=== PATIENT | male | born 1950 | race Caucasian/White ===

== ENCOUNTER 2017-07-06 02:07 | Inpatient (IN) | payer MEDICARE, BC ==
--- NOTE | 2017-06-07 09:43 | RADIOLOGY IMAGING REPORT ---
FACILITY: [facility] PATIENT NAME: Estiven Cornejo : 1950 MR: [id number] V: [id number] EXAM DATE: [id number] ORDERING PHYSICIAN: DOUG PALOMINO TECHNOLOGIST: Location: [facility] [place] Patient: Estiven Cornejo : 1950 Visit/Account:[id number] Date of Sevice: 06/07/2017 Exam type: CHEST PA AND LAT History: Preop, no chest complaints Comparison: November 25, 2016. Findings: The lungs are free of acute effusions, infiltrates or edema. The cardiac silhouette is normal in siz e. There is moderate ectasia the thoracic aorta similar to the prior examination. There is a small hiatal hernia. Incompletely imaged are postsurgical changes of the upper lumbar spine. There is a m ild compression fracture in the mid to upper thoracic spine appears unchanged IMPRESSION: 1. No acute cardiopulmonary process is seen Small hiatal hernia Report Dictated By: Kaitlyn Hilario MD at 06/07/2017 9:18 AM Report E-Signed By: Kaitlyn Hilario MD at 06/07/2017 9:20 AM WSN:[email or web address]
--- NOTE | 2017-06-07 11:40 | EKG ---
FACILITY: [facility] [place] PATIENT NAME: ANAMARIA ZENG : [id number] MR: [id number] V: [id number] EXAM DATE: ORDERING PHYSICIAN: DOUG PALOMINO TECHNOLOGIST: TRACY Test Reason : PREOP-KNEE Blood Pressure : / mmHG Vent. Rate : 075 BPM Atrial Rate : 075 BPM P-R Int : 166 ms QRS Dur : 094 ms QT Int : 364 ms P-R-T Axes : 074 042 059 degrees QTc Int : 406 ms Normal sinus rhythm with sinus arrhythmia Normal ECG When compared with ECG of 25-NOV-2016 09:19, No significant change was found Confirmed by SEBAS MARTIN ([id number]) on 06/07/2017 6:42:40 PM Referred By: CANDELARIO Confirmed By:SEBAS MARTIN
--- NOTE | 2017-07-03 04:05 | HISTORY AND PHYSICAL ---
DATE OF ADMISSION: July 06, 2017 IDENTIFICATION/CHIEF COMPLAINT Estiven is a 67-year-old gentleman with the chief complaint of right knee pain. HISTORY OF PRESENT ILLNESS Patient has a longstanding history of knee arthritis, progressively painful and debilitating, refractory to conservative care. Surgery is indicated to relieve symptoms after failure of nonoperative measures. PAST MEDICAL HISTORY 1. Hypertension, well controlled on medication. 2. Borderline sleep apnea. 3. Remote history of pneumonia. CURRENT MEDICATIONS 1. Mobic 50 mg a day. 2. Tramadol 50 mg t.i.d. 3. Levothyroxine 88 mcg q.day. 4. Propanolol 40 mg p.o. q.day. 5. Atorvastatin 40 mg p.o. q.day. 6. Amitriptyline 25 mg b.i.d. 7. Gabapentin 300 mg t.i.d. 8. Vitamins. ALLERGIES No known drug allergies. PAST SURGICAL HISTORY 1. Prior knee arthroscopy. 2. Lumbar fusion. 3. Hernia repair times two. 4. Treatment of collapsed lung. FAMILY HISTORY Noncontributory. SOCIAL HISTORY Notable for drinking two to three glasses of wine per week. Denies abuse. He previously smoked, but quit 20 years ago. REVIEW OF SYSTEMS Otherwise noncontributory. PHYSICAL EXAMINATION GENERAL: This is a well-developed, well-nourished male who appears his stated age. HEAD: Normocephalic and atraumatic. NECK: Supple. LUNGS: Clear. HEART: Regular. ABDOMEN: Soft. ORTHOPEDIC EXAM: Knee has an effusion present. Crepitus is noted. Extensor function is intact. Gross stability is good. He is stiff at the end range. IMAGING Radiographs demonstrate advanced degenerative changes. ASSESSMENT Right knee end-stage degenerative joint disease, progressively painful and debilitating, refractory to conservative care. PLAN Per patient request we are going to proceed with total knee arthroplasty. The nature of the procedure, risks, benefits and nonoperative alternatives were reviewed. Risks include, but are not limited to , major medical or anesthetic complications, infection, neurovascular injury, blood transfusion, stiffness, scarring, fracture, tendon rupture, instability, implant loosening, migration or failure, persistent or recurrent pain, need for additional surgery and other unforeseen. He understands and wishes to proceed. A signed permit was placed on the chart. No guarantees given or implied. [facility]
[2017-07-05 15:36] LABS: INR 0.97
[~2017-07-06] VITALS: Ht 182.9 cm; Wt 80.7 kg
[2017-07-06] VITALS (16 sets, daily range): BP systolic 107–143; BP diastolic 80–111
[~2017-07-06 02:07] MED LIST: ACE3 PO; ACET500T68 PO; AMIT-106 PO; AMOX1TAB9 PO; ASCO-182 PO; ATOR20TA65 PO; ATOR40TA24 PO; BENZ100C4 PO; CELEBREX; CHLO25TA19; CHOL200022 PO; CHOL400C10 PO; COLC0.6C3 PO; CRESTOR; DIAZ-305 PO; DIAZ-311 PO; DIPH-740 PO; DOXY-1 PO; EZET10TA41 PO; GAB300 PO; GABA-503 PO; GABA-549 PO; HYDR-4308 PO; HYDR2TAB74 PO; KET10 PO; LEVO-85 PO; LEVO75CA4; LEVO88TA42 PO; LOR5/325 PO; MELO-207 PO; METH4TAB66 PO; MULT-27 PO; OMEG500C7 PO; OXYC20TA99 PO; PER PO; PROP40TA45 PO; PSYL0.5235 PO; SIMV-44 PO; SIMV-54; SYNTHROID; TRA50 PO; TRAM-420 PO; TRAM-627 PO; ZOLP12.546 PO
[2017-07-06] MEDS ORDERED: MIDAZOLAM 2 MG/2 ML VIAL IVP PRN (06:15)
[2017-07-06] MEDS ORDERED: DEXTROSE 5% IV ONE (06:15)
[2017-07-06] MEDS ORDERED: FAMOTIDINE 20 MG TAB PO ONE (06:15)
[2017-07-06] MEDS ORDERED: ceFAZolin(*) 2GM/D5W 50ML 50 ML IVPB ONE (06:15)
[2017-07-06] MEDS ORDERED: LIDOCAINE/SOD BICARB 8.4% SYR ID ONE (06:15)
[2017-07-06] MEDS ORDERED: NORMOSOL R SOLN(*) 1000 ML BAG 1,000 ML IV PRN ×2 (06:15→09:50)
[2017-07-06] MEDS ORDERED: TRANEXAMIC AC IV ONE (06:15)
[2017-07-06] MEDS ORDERED: TRANEXAMIC AC 1000 MG/10ML SDV 1,000 MG in DEXTROSE 5% 50 ML BAG 50 ML IV ONE (06:15)
[2017-07-06] MEDS ORDERED: cloNIDine EPIDUR INJ 100MCG/ML 40 MCG, ROPIVACAINE 0.5% 20 ML VIAL 25 ML, EPINEPHrine H... INJ ONE (06:15)
[2017-07-06] MEDS ORDERED: LIDOCAINE MPF 1% 5 ML VIAL ONE (06:39)
[2017-07-06] MEDS ORDERED: DEXAMETHASONE SOD 4 MG/ML VIAL ONE (06:39)
[2017-07-06] MEDS ORDERED: PROPOFOL EMUL(*) 10MG/ML 20 ML 20 ML ONE (06:39)
[2017-07-06] MEDS ORDERED: ONDANSETRON 4 MG/2 ML VIAL ONE (06:39)
[2017-07-06] MEDS ORDERED: fentaNYL CITR 100 MCG/2 ML AMP ONE ×2 (06:40→09:33)
[2017-07-06] MEDS ORDERED: LIDO/EPI 2% MDV 1:100,000 20ML INFIL ONE (06:44)
[2017-07-06] MEDS ORDERED: ROPIVACAINE 0.5% 20 ML VIAL ONE (06:44)
[2017-07-06] MEDS ORDERED: ACETAMINOPHEN(*)1000 MG/100 ML 100 ML IVPB ONE (07:01)
[2017-07-06] MEDS ORDERED: NS 0.9% 20 ML SDV 20 ML ONE (07:02)
[2017-07-06] MEDS ORDERED: HYDROmorphone HCL 2 MG/ML SDV ONE (07:03)
--- NOTE | 2017-07-06 09:48 | RADIOLOGY IMAGING REPORT ---
FACILITY: [facility] PATIENT NAME: Estiven Cornejo : 1950 MR: [id number] V: [id number] EXAM DATE: ORDERING PHYSICIAN: DOUG PALOMINO TECHNOLOGIST: Location: [facility] Patient: Estiven Cornejo : 1950 Visit/Account:[id number] Date of Sevice: 07/06/2017 Right knee, two views. HISTORY: Right total knee arthroplasty. COMPARISON: None currently available. The articular surfaces of the distal femur, proximal tibia, and patella have been resected and replac ed with prosthetic components. The components have been secured with cement. Alignment is unremarkabl e. Air and fluid are present within the joint. Air collections and skin clips are present in the an terior soft tissues. IMPRESSION: Unremarkable knee replacement. Report Dictated By: Martin Manzo MD at 07/06/2017 9:42 AM Report E-Signed By: Martin Manzo MD at 07/06/2017 9:44 AM WSN:[email or web address]
[2017-07-06] MEDS ORDERED: ZOLPIDEM TARTRATE 5 MG TAB PO PRN (09:50)
[2017-07-06] MEDS ORDERED: BISACODYL 10 MG SUPP PR PRN (09:50)
[2017-07-06] MEDS ORDERED: PROMETHAZINE 25 MG/ML 1 ML AMP IVP PRN (09:50)
[2017-07-06] MEDS ORDERED: diphenhydrAMINE 25 MG CAP PO PRN (09:50)
[2017-07-06] MEDS ORDERED: MAGNESIUM HYDROXIDE* 30ML UDCP PO PRN (09:50)
[2017-07-06] MEDS ORDERED: FLUSH 10 ML SYR IVP PRN (09:50)
[2017-07-06] MEDS ORDERED: diphenhydrAMINE 50 MG/ML VIAL IVP PRN (09:50)
[2017-07-06] MEDS ORDERED: ACETAMINOPHEN 325 MG TAB PO PRN (09:50)
[2017-07-06] MEDS: APAP/HYDROCODONE 325/7.5 TAB PO PRN ×2 (11:16→15:36)
--- NOTE | 2017-07-06 11:25 | Hospitalist Progress Note ---
Subjective Progress Notes Subjective The patient is a 67 year old male s/p right TKA with Dr. Irene earlier today. He is doing well postoperatively. Review of the anesthesia record shows and estimated blood loss of 50cc and a low BP during the procedure of 90/50. The patient's PMH is significant for hypothyroidism, dyslipidemia, seizure disorder , insomnia, restless leg syndrome, hx of spontaneous pneumothorax, and hx of pneumonia X 2. PSH is significant for bilateral hernia repair, laminectomy, back surgery and colonoscopy. The patient had acute occurrence of gout in his R arm several days after both back surgeries. He responded well to colchicine. He tends to get constipated on pain medications. Physical Exam Vital Signs Date Time Temp Pulse Resp B/P (MAP) Pulse Ox O2 Delivery O2 Flow Rate FiO2 07/06/17 11:10 98.2 76 16 131/91 (104) 98 Nasal Cannula 0.5 Intake and Output 07/07/17 07:00 Intake Total 1900 ml Balance 1900 ml Intake Oral 100 ml IV Total 1800 ml General Appearance: Alert, Awake, No Acute Distress, Afebrile Neuro: No Gross deficits Eyes: PERRLA Cardiovascular: Regular Rate and Rhythm Respiratory: Clear to Auscultation GI: Soft and Non-Tender Extremities: Warm, Perfused Integumentary: Other (R knee wound bandaged.) Psych: Appropriate Mood & Affect Assessment and Plan Problems: (1) S/P total knee arthroplasty Status: Acute Assessment & Plan: Doing well postoperatively. See Dr. Irene's notes for complete details. The patient will be on ASA 325mg daily for DVT prophylaxis. (2) Hypothyroidism Status: Chronic Assessment & Plan: Continue levothyroxine 88mcg daily. (3) Hyperlipidemia Status: Chronic Assessment & Plan: Continue Zetia 10md daily and atorvastatin 40mg daily. (4) RLS (restless legs syndrome) Status: Chronic Assessment & Plan: Continue amitriptyline 50mg at HS. (5) History of acute gouty arthritis Status: Resolved Assessment & Plan: The patient developed acute gout in his right arm several days after both of his back surgeries. He responded well to colchicine. His was given an RX to have prn if he develops symptoms once discharged. Time Spent on Plan of Care: < 30 min Problem Qualifiers (1) S/P total knee arthroplasty: Laterality: right Qualified Codes: Z96.651 - Presence of right artificial knee joint FLORES,BULMARO A MD Jul 06, 2017 11:25
[2017-07-06] MEDS ORDERED: COLC0.6C3 PO (11:30)
--- NOTE | 2017-07-06 11:39 | LEVENE TKA ---
EVENT DATE: July 06, 2017 SURGEON: Bipin Irene MD ANESTHESIOLOGIST: Randall Hansen MD ANESTHESIA: General plus adductor canal block. SOLID STATE TESTER: Estiven Marie PA-C PREOPERATIVE DIAGNOSIS Right knee degenerative joint disease. POSTOPERATIVE DIAGNOSIS Right knee degenerative joint disease. PROCEDURE PERFORMED Right total knee arthroplasty. ESTIMATED BLOOD LOSS Minimal. DRAINS None. SPECIMENS None. COMPLICATIONS No apparent. TOURNIQUET TIME 36 minutes. IMPLANTS USED [employer] Triathlon knee system, a 5 right PS femur, a 6 standard tibial baseplate , 36 mm universal symmetric all polyethylene patella button and 11 mm PS tibial tray liner. Polyethylene is X3. INDICATIONS The patient is a 67-year-old gentleman with progressive and intractable pain related to end-state knee arthritis refractory to conservative care. Surgery is indicated to relieve symptoms after failure of nonoperative measures. DESCRIPTION OF PROCEDURE The patient was taken to the operating room and placed supine on the operating table. Adductor canal block was placed by the anesthesiologist. General anesthesia was induced. Antibiotics and TXA were administered IV. The right lower extremity was prepped and draped in the usual sterile fashion for knee arthroplasty. The limb was exsanguinated with an Esmarch bandage. The tourniquet was inflated to 250 mmHg. A midline longitudinal incision was made, carried down through the skin and subcutaneous tissue to the extensor mechanism. A full-thickness flap was developed far enough medially to allow medial parapatellar arthrotomy to be performed. The patella was everted. The knee was brought into a flexed position. The fat pad, anterior horns of the menisci and the cruciate ligaments were debrided. Subperiosteal capsular release was performed 1 cm around the upper plateau to balance the knee. A step drill was used to enter the distal femur. A 10-inch long alignment guide was used to engage the isthmus. Cut set for 5 degrees valgus relative to the anatomic axis. A 10 mm resection block was applied, pinned. Cut was made with an oscillating saw. AP sizing guide was applied to the distal femur and positioned for 3 degrees of external rotation relative to the posterior condyles. There is no lateral hypoplasia in spite of the valgus deformity. The four-in-one cutting block size 5 is selected to minimize risk of notching. Four-in-one cutting block was applied. Anterior, posterior, posterior chamfer and anterior chamfer cuts were made respectively. A PS block was applied, centered mediolateral, bone was removed for the box. The trial femur had nice [id number]-[id number] fit. Attention was turned to tibial preparation. The extramedullary guide was applied, positioned for varus, valgus, posterior slope and rotation. This was set to resect 2 mm from the relatively deficient lateral tibial plateau. In spite of the wear on this side, this side was still a bit higher from a bone standpoint. It was dropped down a couple more millimeters to ensure an adequate cut. Block was pinned. Extramedullary check was made. Cut was made with an oscillating saw. The gaps were balanced and symmetric with resection of the popliteus off the femur, a little bit of subperiosteal release of the IT band of Gerdy's, and a posterior capsular release with a Zuniga. The patella was everted, taken from a starting thickness of 25 to a residual of 15 with patellar clamp and oscillating saw. The 36 provided optimal bony coverage without soft tissue overhang. This tracks well with the no-touch technique, no lateral release required. A few bands in the lateral gutter are released. Final tibial preparation consisted of ensuring appropriate rotational and translational position of the component. The box was reamed, the fin was punched. Surfaces were copiously lavaged. Pain cocktail was infiltrated throughout the knee. A mix of polymethylmethacrylate was made and the components were cemented in a single stage. When the cement was fully polymerized, tourniquet was deflated, hemostasis assured. The wound was copiously lavaged. The 11 PS tibial tray liner fills up the gap ideally, allowing the knee to drop to full extension without hyperextension, providing optimal soft tissue tension and balance. The base plate was lavaged and dried, and the liner was locked into the base plate. Joint was reduced. Arthrotomy was closed in flexion with #2 Ethibond, subcu with 3-0 Vicryl, skin with surgical isabel. Xeroform to Profore, dry, sterile dressing, compression wrap. The patient was awakened from the anesthesia and taken to the recovery room in stable condition, having tolerated the procedure well. Plan is for standard TK rehab protocol. CECILIO
[2017-07-06] MEDS: GABAPENTIN 300 MG CAP PO SCH ×2 (12:13→20:50)
[2017-07-06] MEDS: BENZOCAINE/MENTHOL 1 EACH LOZG PO PRN ×4 (12:13→20:53)
[2017-07-06] MEDS: ceFAZolin 1 GM VIAL IVPB SCH ×2 (13:37→22:44)
[2017-07-06] MEDS: CELECOXIB 200 MG CAP PO SCH (17:18)
[2017-07-06] MEDS: DIAZEPAM 5 MG TAB PO PRN (20:50)
[2017-07-06] MEDS: AMITRIPTYLINE HCL 25 MG TAB PO SCH (20:50)
[2017-07-07] VITALS (7 sets, daily range): BP systolic 132–170; BP diastolic 89–113; Ht 182.9 cm; Wt 80.7 kg
[2017-07-07] MEDS: APAP/HYDROCODONE 325/7.5 TAB PO PRN ×4 (03:50→23:24)
[2017-07-07] MEDS: ceFAZolin 1 GM VIAL IVPB SCH (06:07)
--- NOTE | 2017-07-07 08:00 | Hospitalist Progress Note ---
Subjective Progress Notes Subjective Doing very well with good pain control. Up to BR without problems. Physical Exam Vital Signs Date Time Temp Pulse Resp B/P (MAP) Pulse Ox O2 Delivery O2 Flow Rate FiO2 07/07/17 07:43 96 Room Air 07/07/17 07:17 99.0 71 16 170/90 (116) 07/07/17 03:48 2.0 General Appearance: Alert, Awake, Afebrile Cardiovascular: Regular Rate and Rhythm Respiratory: Clear to Auscultation Integumentary: Other (No evidence for T) Psych: Alert & Oriented X3, Appropriate Mood & Affect Assessment and Plan Problems: (1) S/P total knee arthroplasty Status: Acute Assessment & Plan: Doing well postoperatively. See Dr. Irene's notes for complete details. The patient will be on ASA 325mg daily for DVT prophylaxis. (2) Hypothyroidism Status: Chronic Assessment & Plan: Continue levothyroxine 88mcg daily. (3) Hyperlipidemia Status: Chronic Assessment & Plan: Continue Zetia 10md daily and atorvastatin 40mg daily. (4) RLS (restless legs syndrome) Status: Chronic Assessment & Plan: Continue amitriptyline 50mg at HS. (5) History of acute gouty arthritis Status: Resolved Assessment & Plan: The patient developed acute gout in his right arm several days after both of his back surgeries. He responded well to colchicine. His was given an RX to have prn if he develops symptoms once discharged. Time Spent on Plan of Care: < 30 min Exam Sepsis Risk: No Definite Risk Problem Qualifiers (1) S/P total knee arthroplasty: Laterality: right Qualified Codes: Z96.651 - Presence of right artificial knee joint CARLOTA VICTOR MD FACP Jul 07, 2017 08:00
[2017-07-07] MEDS: ASCORBIC ACID 500 MG TAB PO SCH (08:18)
[2017-07-07] MEDS: GABAPENTIN 300 MG CAP PO SCH ×3 (08:18→20:20)
[2017-07-07] MEDS: PROPRANOLOL HCL 20 MG TAB PO SCH (08:18)
[2017-07-07] MEDS: CHOLECALCIFEROL 1000 UNIT TAB PO SCH (08:19)
[2017-07-07] MEDS: ASPIRIN 325 MG TAB PO SCH (08:19)
[2017-07-07] MEDS: ATORVASTATIN 40 MG TAB PO SCH (08:19)
[2017-07-07] MEDS: CELECOXIB 200 MG CAP PO SCH ×2 (08:19→17:04)
[2017-07-07] MEDS: LEVOTHYROXINE SOD 0.088 MG TAB PO SCH (08:19)
[2017-07-07] MEDS: EZETIMIBE 10 MG TAB PO SCH (08:19)
[2017-07-07] MEDS: BENZOCAINE/MENTHOL 1 EACH LOZG PO PRN (09:51)
[2017-07-07] MEDS: DIAZEPAM 5 MG TAB PO PRN ×2 (12:01→20:20)
[2017-07-07] MEDS: AMITRIPTYLINE HCL 25 MG TAB PO SCH (20:20)
[2017-07-08 00:10] VITALS: BP 165/102
[2017-07-08] MEDS: DIAZEPAM 5 MG TAB PO PRN (03:12)
[2017-07-08 03:13] VITALS: BP 160/102
[2017-07-08] MEDS: APAP/HYDROCODONE 325/7.5 TAB PO PRN ×2 (05:53→09:45)
[2017-07-08 07:20] VITALS: BP 139/95
[2017-07-08] MEDS ORDERED: HYDR-4308 PO (08:01)
--- NOTE | 2017-07-08 08:01 | Hospitalist Progress Note ---
Subjective Progress Notes Subjective Doing very well with phys therapy and pain control. Wants to try home this morning. Physical Exam Vital Signs Date Time Temp Pulse Resp B/P (MAP) Pulse Ox O2 Delivery O2 Flow Rate FiO2 07/08/17 03:13 99.1 95 14 160/102 (121) Nasal Cannula 2.0 07/07/17 23:30 88 General Appearance: Alert, Awake, No Acute Distress, Afebrile Cardiovascular: Regular Rate and Rhythm Respiratory: Clear to Auscultation Integumentary: Other (No evidence for VTE. Incision looks great.) Psych: Alert & Oriented X3, Appropriate Mood & Affect Assessment and Plan Problems: (1) S/P total knee arthroplasty Status: Acute Assessment & Plan: Doing well postoperatively. See Dr. Irene's notes for complete details. The patient will be on ASA 325mg daily for DVT prophylaxis. Home this morning. (2) Elevated blood pressure reading Status: Acute Assessment & Plan: Since admission, BP has been consistently in the 140-160 systolic and 100-110 diastolic range. He has a mild history of hypertension for which codey takes B blockers. Advised to take and record home BP readings on several occasions and to see his primary care doctor () in the next 2 weeks or so for evaluation of BP control and possible need for additional meds. (3) Hypothyroidism Status: Chronic Assessment & Plan: Continue levothyroxine 88mcg daily. (4) Hyperlipidemia Status: Chronic Assessment & Plan: Continue Zetia 10md daily and atorvastatin 40mg daily. (5) RLS (restless legs syndrome) Status: Chronic Assessment & Plan: Continue amitriptyline 50mg at HS. (6) History of acute gouty arthritis Status: Resolved Assessment & Plan: The patient developed acute gout in his right arm several days after both of his back surgeries. He responded well to colchicine. His was given an RX to have prn if he develops symptoms once discharged. Time Spent on Plan of Care: > 30 min Exam Sepsis Risk: No Definite Risk Problem Qualifiers (1) S/P total knee arthroplasty: Laterality: right Qualified Codes: Z96.651 - Presence of right artificial knee joint CARLOTA VICTOR MD FACP Jul 08, 2017 08:01
[2017-07-08] MEDS ORDERED: DIA5 PO (08:02)
[2017-07-08] MEDS ORDERED: ASPI-757 PO (08:05)
[2017-07-08] MEDS: ASPIRIN 325 MG TAB PO SCH (08:47)
[2017-07-08] MEDS: ASCORBIC ACID 500 MG TAB PO SCH (08:48)
[2017-07-08] MEDS: GABAPENTIN 300 MG CAP PO SCH (08:48)
[2017-07-08] MEDS: CELECOXIB 200 MG CAP PO SCH (08:48)
[2017-07-08] MEDS: EZETIMIBE 10 MG TAB PO SCH (08:48)
[2017-07-08] MEDS: CHOLECALCIFEROL 1000 UNIT TAB PO SCH (08:48)
[2017-07-08] MEDS: ATORVASTATIN 40 MG TAB PO SCH (08:48)
[2017-07-08] MEDS: LEVOTHYROXINE SOD 0.088 MG TAB PO SCH (08:48)
[2017-07-08] MEDS: PROPRANOLOL HCL 20 MG TAB PO SCH (08:50)
== END 2017-07-08 10:50 | disposition home or self-care (01) | DRG 470 ==
LOC: OR 02:07 → MED 10:20
PROVIDERS: ADMIT Orthopaedic Surgery; ATTEND Orthopaedic Surgery
PROC: 0SRC0J9 Replacement of Right Knee Joint with Synthetic Substitute, Cemented, Open Approach (ICD-10-PCS; principal; 2017-07-06 07:11)
DX: M17.11 Unilateral primary osteoarthritis, right knee (principal); I10 Essential (primary) hypertension; G47.33 Obstructive sleep apnea (adult) (pediatric); G25.81 Restless legs syndrome; Z98.1 Arthrodesis status; E03.9 Hypothyroidism, unspecified; E78.5 Hyperlipidemia, unspecified; G40.909 Epilepsy, unspecified, not intractable, without status epilepticus; G47.00 Insomnia, unspecified; M10.9 Gout, unspecified; Z87.891 Personal history of nicotine dependence
CPT/HCPCS: 36415; 71020; 76942; 85610; 86850; 86900; 86901; 93005; 97161; C1713; C1776; J0131; J0171; J0690; J0735; J1100; J1170; J1885; J2001; J2250; J2405; J2704; J2795; J3010; J7050; J7060

== ENCOUNTER → 2017-09-15 | Outpatient (CLI) | payer MEDICARE, BC ==
[2017-07-07 12:29] VITALS: BMI 24.1
[~2017-09-15] MED LIST changes: +ASPI-757 PO; +DIA5 PO
== END ==
LOC: RESP 01:39
PROVIDERS: ATTEND Family Medicine
DX: R56.9 Unspecified convulsions (principal); R55 Syncope and collapse
CPT/HCPCS: 95819